=== PATIENT | female | born 1950 | race Caucasian/White ===

== ENCOUNTER 2022-08-12 22:52 | Emergency (ER) | payer OTHER, SELFPAY ==
[2022-08-12 22:54] VITALS: BP 141/65; PULSE 87; RESP 16; TEMP 36.3; O2SAT 96; BMI 27.3
--- NOTE | 2022-08-13 | ED.WOUNDLAC ---
HPI - Wound/Laceration General Chief Complaint: Wound/Laceration Stated Complaint: rt knee injury Time Seen by Provider: 08/12/22 23:43 Source: patient Mode of arrival: Wheelchair Limitations: no limitations History of Present Illness HPI narrative: Patient is a 72-year-old female here for evaluation of a laceration to her right knee. She states she was stepping down off of a deck onto a tree stump when she slipped and fell. She did land on her right knee. Sustained a large laceration to the right knee. No other injuries from the event. She does not know when her last tetanus shot was. She was seen by local paramedics who advised that she come to the emergency department for evaluation. Related Data Allergies Allergy/AdvReac Type Severity Reaction Status Date / Time ciprofloxacin Allergy Verified 08/12/22 23:17 duloxetine Allergy Verified 08/12/22 23:19 Review of Systems Musculoskeletal Musculoskeletal: Reports system reviewed and no additional complaints, except as documented Integumentary/Breasts Skin/Breast: Reports system reviewed and no additional complaints, except as documented Neurologic Neurologic: Reports system reviewed and no additional complaints, except as documented Hematologic/Lymphatic On Anticoagulants: No Exam Initial Vital Signs Initial Vital Signs: Vital Signs Temperature 97.3 F L 08/12/22 22:54 Pulse Rate 87 08/12/22 22:54 Respiratory Rate 16 08/12/22 22:54 Blood Pressure 141/65 H 08/12/22 22:54 Pulse Oximetry 96 08/12/22 22:54 Oxygen Delivery Method Room Air 08/12/22 22:54 Skin Other: Patient with a 15 cm laceration across the anterior portion of the knee. No active bleeding. Neuro Sensory Exam: no sensory deficits noted Extrem Other: Patient is able to do a straight leg raise. She is able to flex it her knee with some discomfort because of the cut. There is no patella tendon injury. Procedures Laceration Repair Laceration 1: Site: lower extremity Side (If applicable): right Size (cm): 15 Description: linear Depth: simple, single layer Local Anesthetic: lidocaine 1% and with epi Amount of anesthesia used (mL): 10 Pre-repair: wound explored, irrigated extensively and deep structures intact Skin layer closed with: nylon Skin layer suture size: 3-0 Number of sutures: 23 Technique: simple, interrupted Course Orders Ordered: Discontinued Medications Bacitracin (Bacitracin Oint 0.9 Gm Pckt) 1 applic TOP NOW ONE Stop: 08/13/22 00:29 Last Admin: 08/13/22 00:35 Dose: 1 applic Documented By: TAMI Diphtheria/Tetanus/Acell Pertussis (Tet,Diph,Pertuss(Acell),Vac/Pf 0.5 Ml Syringe) 0.5 ml IM .ONCE ONE Stop: 08/13/22 00:19 Last Admin: 08/13/22 00:29 Dose: 0.5 ml Documented By: TAMI Vital Signs Vital signs: Vital Signs - 8 hr 08/12/22 22:54 08/13/22 00:42 Temperature 97.3 F L Pulse Rate 87 77 Respiratory Rate 16 18 Blood Pressure 141/65 H 133/63 Pulse Oximetry 96 97 Oxygen Delivery Method Room Air Room Air MDM - Wound/Laceration MDM Narrative Medical decision making narrative: Patient's tetanus was updated. There is no patella tendon injury. Wound was closed as described above. Patient is currently on antibiotics secondary to a sinus infection. She was given care instructions and return precautions. She expressed understanding and agreement. Discharge Plan Departure Patient Disposition: Home Clinical Impression: Laceration Instructions: DI for Laceration Repair Activity Restrictions/Additional Instructions: The stitches do need to be removed in approximately 10 days. Until then you can cover it with antibiotic ointment. It is also important that you try not to bend your knee excessively. You can use the Tommy bandage as needed to help with this. You can shower like normal. Return to the emergency department for new or worsening symptoms. Stand Alone Forms: Patient Portal/API
[2022-08-13] MEDS: TET,DIPH,PERTUSS(ACELL),VAC/PF 0.5 ML SYRINGE IM (00:29)
[2022-08-13] MEDS: BACITRACIN OINT 0.9 GM PCKT 1 APPLIC TOP (00:35)
[2022-08-13 00:42] VITALS: BP 133/63; PULSE 77; RESP 18; O2SAT 97
== END 2022-08-13 00:51 | disposition home or self-care (01) ==
PROVIDERS: Emergency Provider Emergency Medicine
DX: S81.011A Laceration without foreign body, right knee, initial encounter (principal); W01.0XXA Fall on same level from slipping, tripping and stumbling without subsequent striking against object, initial encounter; Z23 Encounter for immunization
CPT/HCPCS: 12005; 90471; 99283; 90715